=== PATIENT | male | born 1945 | race Caucasian/White ===

== ENCOUNTER → 2016-08-25 | Day surgery (SDC) | payer MEDICARE, OTHER ==
[~2016-08-25] MED LIST: ASPI81TA50 PO; CHLO25TA PO; DILT120C80 PO; DILT240C32 PO; IV RINGERS,LACTATED 1000ML 1,000 ML IV SCH; LIDOCAINE 1% 1 ML SYRINGE. ID PRN; LIDOCAINE 2% PF Vial for OR 5 ML VIAL. ONE; MELO15TA6 PO; MIDAZOLAM HCL/PF 2 MG/2 ML VIAL. IV PRN; MULT-208 PO; OMEP20CA9 PO; OMEP20TA8 PO; POTA10TA12 PO; POTASSIUM CHLO10 MEQ PO; PROPOFOL 40 ML IV ONE; SIMV10TA3 PO; SIMV20TA3 PO; fentaNYL PF VIAL 100 MCG/2 ML VIAL IV PRN
[2016-08-25 14:04] VITALS: BP 124/80
== END | disposition home or self-care (01) ==
LOC: SURG 12:25
PROVIDERS: ATTEND Internal Medicine Gastroenterology
DX: Z09 Encounter for follow-up examination after completed treatment for conditions other than malignant neoplasm (principal); Z86.010 Personal history of colon polyps; K64.0 First degree hemorrhoids; M19.90 Unspecified osteoarthritis, unspecified site; E78.00 Pure hypercholesterolemia, unspecified; I10 Essential (primary) hypertension; K21.9 Gastro-esophageal reflux disease without esophagitis; F17.200 Nicotine dependence, unspecified, uncomplicated; Z87.39 Personal history of other diseases of the musculoskeletal system and connective tissue; Z96.641 Presence of right artificial hip joint; Z72.0 Tobacco use
CPT/HCPCS: 45378; J2001; J2704